=== PATIENT | male | born 1990 | race Caucasian/White ===

== ENCOUNTER 2016-07-19 01:43 | Inpatient (IN) | payer MEDICAID ==
[2016-07-19] VITALS (7 sets, daily range): BP systolic 104–137; BP diastolic 70–88
[~2016-07-19] VITALS: Ht 190.5 cm; Wt 65.1 kg
[2016-07-19 02:15] LABS: BASOPHILS # (AUTO) 0.02 K/uL (0.00-0.20); BASOPHILS % (AUTO) 0.3 % (0.0-2.0); EOSINOPHILS # (AUTO) 0.09 K/uL (0.00-0.70); EOSINOPHILS % (AUTO) 1.12 % (1.0-6.0); HEMATOCRIT 49.1 % (41-53); HEMOGLOBIN 16.6 g/dL (13.5-17.5); LYMPHOCYTES # (AUTO) 2.1 K/uL (1.0-4.8); LYMPHOCYTES % (AUTO) 27.3 % (22.0-44.0); MEAN CORPUSCULAR HEMOGLOBIN 30.1 pg (26.0-34.0); MEAN CORPUSCULAR HGB CONC 33.8 G/dL (31.0-37.0); MEAN CORPUSCULAR VOLUME 89 fL (80-100); MONOCYTES # (AUTO) 0.6 K/uL (0.1-1.0); MONOCYTES % (AUTO) 7.5 % (2.0-9.0); NEUTROPHILS % (AUTO) 63.7 % (40.0-70.0); PLATELET COUNT (AUTO) 273 K/uL (150-450); RED BLOOD CELL COUNT(AUTO) 5.53 MIL/uL (4.50-5.90); RED CELL DISTRIBUTION WIDTH 14.3 % (11.5-14.5); WHITE BLOOD COUNT (AUTO) 7.8 K/uL (4.5-11.0)
[2016-07-19 02:23] LABS: ANION GAP 12 mmol/L (8-16); CALCIUM, TOTAL 9.1 mg/dL (8.8-10.5); CARBON DIOXIDE 28 mmol/L (22-29); CHLORIDE 102 mmol/L (98-107); CREATININE 0.83 mg/dL (0.60-1.30); GLOMERULAR FILTR. RATE CALC > 60 mL/min (>60); POTASSIUM 5.2 mmol/L (3.5-5.1); SODIUM SERUM 142 mmol/L (136-145); UREA NITROGEN, BLOOD 7 mg/dL (7-18)
[2016-07-19 02:30] LABS: ALANINE AMINOTRANSFERASE 56 U/L (12-78); ALBUMIN 4.8 g/dL (3.4-5.0); ASPARTATE AMINOTRANSFERASE 66 U/L (15-37); BILIRUBIN,TOTAL 0.7 mg/dL (0.1-1.0); TOTAL PROTEIN, SERUM 9.3 g/dL (6.4-8.2)
[2016-07-19] MEDS ORDERED: LORazepam 2 MG TABLET PO ONE (02:30)
[2016-07-19] MEDS ORDERED: ZOLPIDEM TARTRATE 10 MG TABLET PO PRN (04:00)
[2016-07-19] MEDS ORDERED: HALOPERIDOL 5 MG TABLET PO PRN (04:00)
[2016-07-19] MEDS ORDERED: LOPERAMIDE HCL 2 MG CAPSULE PO PRN (04:00)
[2016-07-19] MEDS ORDERED: HydrOXYzine PAMOATE 50 MG CAPSULE PO PRN (04:00)
[2016-07-19] MEDS ORDERED: GuaiFENesin/D-METHORPHAN [SUGAR-FREE] 200-20MG/10 ML SYRUP UDCUP PO PRN (04:00)
[2016-07-19] MEDS ORDERED: CYANOCOBALAMIN 1,000 MCG/ML VIAL IM ONE (04:00)
[2016-07-19] MEDS: FOLIC ACID 1 MG TABLET PO SCH (08:11)
[2016-07-19] MEDS: MULTIVITAMINS WITH MINERALS, THERAPEUTIC TABLET PO SCH (08:11)
[2016-07-19] MEDS: THIAMINE HCL 100 MG TABLET PO SCH ×2 (08:11→16:25)
[2016-07-19] MEDS: LORazepam 2 MG TABLET PO SCH (12:22)
[2016-07-19] MEDS: LORazepam 2 MG TABLET PO PRN ×3 (12:56→19:57)
[2016-07-19] MEDS ORDERED: SODIUM POLYSTYRENE SULFONATE 15 GM/60 ML SUSPENSION BOTTLE PO ONE (13:00)
[2016-07-19] MEDS: NICOTINE 21 MG/24 HOUR PATCH TD SCH (15:16)
[2016-07-19] MEDS: FLUoxetine HCL 20 MG CAPSULE PO SCH (19:57)
[2016-07-20 02:01] VITALS: BP 133/90
[2016-07-20 06:01] VITALS: BP 131/91
[2016-07-20] MEDS ORDERED: LORazepam 2 MG TABLET PO PRN (07:00)
[2016-07-20] MEDS: LORazepam 2 MG TABLET PO SCH ×4 (08:57→20:12)
[2016-07-20] MEDS: FOLIC ACID 1 MG TABLET PO SCH (08:58)
[2016-07-20] MEDS: MULTIVITAMINS WITH MINERALS, THERAPEUTIC TABLET PO SCH (08:58)
[2016-07-20] MEDS: FLUoxetine HCL 20 MG CAPSULE PO SCH (08:58)
[2016-07-20] MEDS: THIAMINE HCL 100 MG TABLET PO SCH ×2 (08:58→16:31)
[2016-07-20] MEDS: NICOTINE 21 MG/24 HOUR PATCH TD SCH (09:00)
[2016-07-20 10:00] VITALS: BP 150/94
[2016-07-20 14:06] VITALS: BP 143/84
[2016-07-20 18:01] VITALS: BP 146/92
[2016-07-20] MEDS ORDERED: IBUPROFEN 400 MG TABLET PO PRN (19:15)
[2016-07-20] MEDS ORDERED: ACETAMINOPHEN 325 MG TABLET PO PRN (19:15)
[2016-07-20 22:11] VITALS: BP 150/84
[2016-07-21 06:15] VITALS: BP 124/84
[2016-07-21 06:16] VITALS: BP 124/84
[2016-07-21 08:00] VITALS: BP 142/78
[2016-07-21] MEDS: FLUoxetine HCL 20 MG CAPSULE PO SCH (09:20)
[2016-07-21] MEDS: LORazepam 2 MG TABLET PO SCH ×4 (09:20→20:02)
[2016-07-21] MEDS: MULTIVITAMINS WITH MINERALS, THERAPEUTIC TABLET PO SCH (09:21)
[2016-07-21] MEDS: THIAMINE HCL 100 MG TABLET PO SCH ×2 (09:21→16:24)
[2016-07-21] MEDS: FOLIC ACID 1 MG TABLET PO SCH (09:21)
[2016-07-21] MEDS: NICOTINE 21 MG/24 HOUR PATCH TD SCH (09:21)
[2016-07-21 16:34] VITALS: BP 133/83
[2016-07-21 20:01] VITALS: BP 134/78
[2016-07-22 06:10] VITALS: BP 115/70
[2016-07-22] MEDS ORDERED: LORazepam 1 MG TABLET PO PRN (07:00)
[2016-07-22] MEDS: THIAMINE HCL 100 MG TABLET PO SCH ×2 (09:11→17:09)
[2016-07-22] MEDS: FOLIC ACID 1 MG TABLET PO SCH (09:11)
[2016-07-22] MEDS: MULTIVITAMINS WITH MINERALS, THERAPEUTIC TABLET PO SCH (09:11)
[2016-07-22] MEDS: FLUoxetine HCL 20 MG CAPSULE PO SCH (09:11)
[2016-07-22] MEDS: LORazepam 1 MG TABLET PO SCH ×3 (09:11→17:09)
[2016-07-22] MEDS: NICOTINE 21 MG/24 HOUR PATCH TD SCH (09:14)
[2016-07-22 09:58] VITALS: BP 123/81
[2016-07-22] MEDS ORDERED: PROZ10 PO (16:42)
[2016-07-23] MEDS ORDERED: LORazepam 1 MG TABLET PO PRN (07:00)
== END 2016-07-22 17:15 | disposition home or self-care (01) | DRG 751 ==
LOC: EMS 01:44 → 3EI 09:55
PROVIDERS: ADMIT Psychiatry & Neurology Psychiatry; ATTEND Psychiatry & Neurology Psychiatry
DX: F33.2 Major depressive disorder, recurrent severe without psychotic features (principal); R45.851 Suicidal ideations; E87.5 Hyperkalemia; F17.210 Nicotine dependence, cigarettes, uncomplicated; F10.20 Alcohol dependence, uncomplicated; Z91.14 Patient's other noncompliance with medication regimen; Z81.8 Family history of other mental and behavioral disorders; Z91.5 Personal history of self-harm; Z71.41 Alcohol abuse counseling and surveillance of alcoholic; Z88.8 Allergy status to other drugs, medicaments and biological substances; Z91.048 Other nonmedicinal substance allergy status
CPT/HCPCS: 84132; 96372; 99285; G0480; J3420